=== PATIENT | male | born 1980 | race Caucasian/White ===

== ENCOUNTER 2017-03-16 14:08 | Emergency (ER) | payer SELFPAY ==
[~2017-03-16] VITALS: Ht 185.4 cm; Wt 86.4 kg
[~2017-03-16 14:08] MED LIST: CALC-714 PO; CHOL500014 PO; DORZ10DR22 OP; INUL2.5T PO; LATA2.5D6 OP; LEVO25TA5 PO; METF10002 PO; NPH,100I SUBQ; POTA20TA7 PO; TRAZ150T72 PO; UBID100C16 PO; VITA1CAP PO
[2017-03-16 14:18] VITALS: BP 131/84; PULSE 83; RESP 12; O2SAT 98
--- NOTE | 2017-03-16 15:32 | ED.REPORT ---
HPI-General Illness Date of Service Mar 16, 2017 ED Provider: Chalo Turcios MD A 36 year old male with a history of polysubstance abuse presents to the ED seeking detox and placement and [facility]. Patient admits to using heroin and alcohol yesterday afternoon. He states that he is currently experiencing withdrawal symptoms and is requesting a Suboxone prescription. Last meth use was 3 days ago. He typically consumes 3-4 drinks per day. Nursing Notes Stated Complaint: SUBSTANCE ABUSE Chief Complaint: Substance Abuse Nursing Notes Reviewed: Yes Allergies: Coded Allergies: Penicillins (Verified Allergy, Unknown, 04/29/16) Scheduled Latanoprost (Latanoprost) 2.5 Ml Drops 1 GTT OP HS Levothyroxine (Levothyroxine) 25 Mcg Tablet 25 MCG PO DAILY Metformin (Metformin) 1,000 Mg Tablet 1,000 MG PO BIDWM NPH, Human Insulin Isophane (HUMulin-N U100 Insulin Kwikpen) 100 Unit/1 Ml Insuln.pen 20 UNIT SUBQ HS Potassium Chloride ER (Klor-Con M20) 20 Meq Tab.er.prt 40 MEQ PO BID Trazodone (Trazodone) 150 Mg Tablet 150 MG PO HS Miscellaneous Medications Calcium Carb/Magnesium Cmb #10 (Conor-Mag Tablet Chewable) 1 Each Tab.chew 1 EACH PO Cholecalciferol (Vitamin D3) (Vitamin D) 5,000 Unit Tablet 5,000 UNIT PO Dorzolamide HCl/Timolol Maleat (Cosopt Eye Drops) 10 Ml Drops 10 ML OP Inulin (Fiber Gummies) 2.5 Gm Tab.chew 2.5 GM PO Ubidecarenone (Coq-10) 100 Mg Capsule 100 MG PO Vitamin B Complex (Vitamin B Complex) 1 Each Capsule 1 EACH PO General Time Seen by MD: 15:28 Chief Complaint Other (Detox) Hx Obtained From: Patient Arrived By: Walk-in Sudden in Onset?: No Onset Occurred: Yesterday Symptom Duration: Since onset Pertinent Negative: Pt denies other symptoms Recent Healthcare: No recent doctor visit, No recent hospitalization Past Medical History Past Medical History Polysubstance abuse Past Surgical History None reported Smoking History Current Every Day Smoker Social History Alcohol Use: 1-3 per day Other Social History: , Local resident Occupation , lives by self, has 9 year old boy/girl twins 04/28/2016 Ambulatory Status Independent Review of Systems + "withdrawal symptoms" Denies any other medical complaints at this time Complete sys rev & neg: except as marked. Physical Exam Vital Signs Vital Signs Date Time Temp Pulse Resp B/P Pulse Ox O2 Delivery O2 Flow Rate FiO2 03/16/17 16:01 71 16 124/81 99 Room Air 03/16/17 14:18 36.6 83 12 131/84 98 Room Air Initial VS: Reviewed Head / Eyes: Atraumatic, Normocephalic, PERRL Neck: Supple, Non-tender, Full range of motion Extremities: Vascular intact, Neuro intact, No swelling, No tenderness Neurologic: Alert, Oriented, Nonfocal Psychiatric: Mood/affect normal, Behavior normal, Normal thought content General/Constitutional: Awake, Alert, No acute distress, Well appearing, Well developed Head / Eyes: Atraumatic, Normocephalic, PERRL Respiratory / Chest: Atraumatic, Breath sounds NL, Breath sounds = bilat, No respiratory distress Cardiovascular: Heart rate NL, Regular rhythm, Heart sounds NL, No murmurs Abdomen: Atraumatic, Soft, Non-tender Skin: Atraumatic, Color NL, No rash, Warm, Dry Color / Condition: Negative: Diaphoresis present Re-Eval/Medical Decision Med Decision/Clinical Course 36-year-old male street of heroin abuse, methamphetamine abuse, alcohol abuse here requesting detox. Last used yesterday. There are no overt signs symptoms of withdrawal. There are no beds available at crisis resp[facility]. This was discussed with patient and social services counselor and he will call in the morning to check for beds. Return precautions given. Time of Eval: 15:38 Patient Status: Condition improved Re-Evaluation/Progress Note: The patient agrees to meet with the social services counselor and discuss treatment options. Time of Eval: 15:42 Patient Status: Condition improved Re-Evaluation/Progress Note: Patient is informed of the lack of available beds at Crisis. He agrees to call again in the morning. All questions about plan are addressed. Counseled Regarding: Diagnosis, Need for follow-up, When/why to return to ED Discharge & Departure Primary Impression: Substance abuse Disposition: Home Discharge Condition All VS Reviewed: Yes Condition: Improved Patient Instructions: Abuse of Alcohol (ED), Alcohol Withdrawal (ED), Methamphetamine Abuse (ED) Additional Instructions: Thank you for trusting us with your care this afternoon. [facility] does not have any available beds today. Please see referral and call in the morning tomorrow to check for available beds. Please abstain from any substance use including heroin, meth or alcohol. Please return to the emergency department for any new or worsening conditions including any high fevers, shaking chills, uncontrollable nausea/vomiting, abdominal pain, chest pain, shortness or breath, numbness/tingling or lightheadedness. Referrals: [facility] (PCP) [facility] Scribe Attestation Portions of this note were transcribed by Nate Monique. I, Dr. Turcios personally performed the history, physical exam and medical decision-making; I reviewed and confirmed the accuracy of the information in the transcribed note. copies to: [facility] Chalo Turcios MD Mar 16, 2017 15:32 NATE MONIQUE Mar 16, 2017 15:42
[2017-03-16] MEDS ORDERED: _LORazepam 1 mg Tablet PO PRN (15:40)
[2017-03-16] MEDS ORDERED: LORazepam 1 mg Tablet PO ONE (15:50)
[2017-03-16 16:01] VITALS: BP 124/81; PULSE 71; RESP 16; O2SAT 99
== END 2017-03-16 16:02 | disposition home or self-care (01) ==
LOC: SED 14:08
DX: F11.10 Opioid abuse, uncomplicated (principal); F10.10 Alcohol abuse, uncomplicated; F15.10 Other stimulant abuse, uncomplicated; F17.200 Nicotine dependence, unspecified, uncomplicated; Z88.0 Allergy status to penicillin; Z79.84 Long term (current) use of oral hypoglycemic drugs